=== PATIENT | female | born 1970 | race Two or more races ===

== ENCOUNTER 2022-01-15 05:11 | Emergency (ER) | payer SELFPAY ==
[~2022-01-15] VITALS: Ht 149.9 cm; Wt 71.0 kg
--- NOTE | 2022-01-15 05:18 | PHYS DOC ---
General Adult EDM: Chief Complaint: CHEST PAIN HPI: HPI: Patient is a 51 year old female who presents with 1 week history of left-sided chest pain. She reports that the pain radiates to her shoulder, down her arm, to her upper mid abdomen and left upper quadrant, and also to her posterior shoulder. It sounds like the pain is mostly constant, with intermittent exacerbations. She is unable to describe the type of pain. Asked what type of pain she is having, she repeatedly states "dolor." She reports "a little" shortness of breath. She denies cough or hemoptysis. She denies fevers or chills. She denies urinary symptoms. She reports nausea, no vomiting. She denies constipation or diarrhea. She alludes to the pain being slightly worse today. She has not taken any medications for this. She has not sought care until now. She reports that she has no medical problems but she has not seen a physician in many years. She reportedly takes no agir-xsf-[id number] or prescription medications. She denies any trauma or injury to her chest, abdomen or upper extremity. No known history of coronary disease, [place]. She has had a previous C-sections and a previous cholecystectomy. (AYAZ CALLE DO) Review of Systems: Review of Systems: Constitutional: Denies fever or chills. [] HENT: Denies nasal congestion or sore throat. [] Respiratory: Denies cough or hemoptysis. Mild dyspnea. Cardiovascular: Denies chest pain or edema. [] GI: Denies abdominal pain, nausea, vomiting, bloody stools or diarrhea. [] : Denies dysuria. [] Musculoskeletal: Denies back pain or joint pain. [] Integument: Denies rash. [] Neurologic: Denies headache, focal weakness or sensory changes. [] Endocrine: Denies polyuria or polydipsia. [] Lymphatic: Denies swollen glands. [] Psychiatric: Denies depression or anxiety. [] (AYAZ CALLE DO) Heart Score: C/O Chest Pain: Yes HEART Score for Chest Pain: HEART Score for Chest Pain Response (Comments) Value History Slighlty/Non-Suspicious 0 ECG Nonspecific Repolarizatio 1 Age >45 - < 65 1 Risk Factors 1 or 2 Risk Factors 1 Total 3 Risk Factors: Risk Factors: DM, Current or recent (<one month) smoker, HTN, HLP, family history of CAD, obesity. Risk Scores: Score 0 - 3: 2.5% MACE over next 6 weeks - Discharge Home Score 4 - 6: 20.3% MACE over next 6 weeks - Admit for Clinical Observation Score 7 - 10: 72.7% MACE over next 6 weeks - Early Invasive Strategies (JAS CALLEN M DO) Physical Exam: PE: Constitutional: Well developed, well nourished, no acute distress, non-toxic appearance. [] HENT: Normocephalic, atraumatic, bilateral external ears normal, oropharynx moist, no oral exudates, nose normal. [] Eyes: PERRLA, EOMI, conjunctiva normal, no discharge. [] Neck: Normal range of motion, no tenderness, supple, no stridor. [] Cardiovascular:Heart rate regular rhythm, no murmur, +2 radial pulses and +2 posterior tibial pulses bilaterally. Cap refill is brisk and less than 2 seconds. No peripheral edema noted. Lungs & Thorax: Bilateral breath sounds clear to auscultation, no rales, rhonchi or wheezes. Palpation of the left chest wall reproduces her pain. Abdomen: Abdomen is soft, obese, nondistended, normal bowel sounds, mild epigastric and left upper quadrant tenderness to palpation. No guarding, no rebound tenderness. No lower abdominal tenderness. No palpable pulsatile mass. No CVA tenderness. No flank abdominal ecchymoses. No fluid or bursitis noted Skin: Warm, dry, no erythema. Chronic appearing scaly rash of the bilateral upper and lower extremities. No open wounds. Acanthosis of the neck is noted. Back: No tenderness, no CVA tenderness. [] Extremities: No tenderness, no cyanosis, no clubbing, ROM intact, no edema. [] Neurologic: Alert and oriented X 3, normal motor function, normal sensory function, no focal deficits noted. [] Psychologic: Affect is somewhat bizarre, flat. She is cooperative. (JAS CALLEN M DO) EKG: EKG: EKG is interpreted at 0520 Rhythm is sinus Rate is 83 bpm [place] is left No STEMI No acute ischemia (ALVAJAS WEBBN M DO) Radiology/Procedures: Radiology/Procedures: [] (ALVAAYAZ M DO) Impression: PATIENT: YAO ESCALERA ACCOUNT: [id number] : 1970 LOCATION: ER AGE: 51 SEX: F EXAM STATUS: REG ER ORD. PHYSICIAN: AYAZ CALLE DO REASON: chest pain, abdominal pain PROCEDURE: CT CHEST ABD PELVIS W/CONTRAST EXAMINATION: CT CHEST+ABD+PELVIS W (CT CHEST WITH IV CONTRAST and CT ABDOMEN AND PELVIS WITH IV CONTRAST) CLINICAL HISTORY: Chest and abdominal pain. TECHNIQUE: CT of the chest performed with IV contrast, scanning from the thoracic inlet to the upper abdomen. CT of the abdomen and pelvis performed with IV contrast, scanning from just above the dome of the diaphragm to the symphysis pubis. CT Dose Reduction Employed: One or more of the following individualized dose reduction techniques were utilized for this examination: 1. Automated exposure control 2. Adjustment of the mA and/or kV according to patient size 3. Use of iterative reconstruction technique. COMPARISON: Chest radiograph same day FINDINGS: CHEST: No consolidation. Mild dependent subsegmental atelectasis in the lower lobes. Small perifissural nodule anterior minor fissure. No pleural effusion. Central airways are patent. Visualized thyroid gland within normal limits. No mediastinal, hilar, or axillary lymphadenopathy. Thoracic aorta and main pulmonary artery normal in caliber. No evidence of coronary atherosclerotic calcification, however, it is of note that the exam is not optimized for assessment of the coronary arteries. Normal heart size. No pericardial effusion. Mild degenerative changes in the thoracic spine. ABDOMEN/PELVIS: Cholecystectomy. Liver, pancreas, spleen, adrenal glands, and kidneys unremarkable. Moderately filled urinary bladder. Uterus and ovaries unremarkable on limited evaluation. Fluid-filled first and second segments of the duodenum with wall thickening and mild surrounding mesenteric stranding, suggestive of mild duodenitis. No dilated bowel. Mild sigmoid diverticulosis. Appendix within normal limits. No abdominal aortic or iliac artery aneurysm. No evidence of acute osseous abnormality. IMPRESSION: CHEST: No evidence of acute cardiopulmonary abnormality. ABDOMEN/PELVIS: Findings compatible with mild duodenitis. Electronically signed by: Cheng Barr DO (01/15/2022 7:16 AM) [facility] DICTATED and SIGNED BY: CHENG BARR DO DATE: 01/15/22 [id number] 0 (JOCELYNE COPE MD) Course & Med Decision Making: Course & Med Decision Making Pertinent Labs and Imaging studies reviewed. (See chart for details) IV fluids ordered, IV Zofran and IV morphine ordered. She is kept n.p.o. Chest x-ray is unremarkable. EKG is unremarkable. I have discussed the findings, differential diagnosis and plan of care thus far with her. I am recommending CT of the chest, abdomen and pelvis. I am transferring care to Dr. Cope at 0600 to follow-up on these results. Troponin is negative. No ischemia on EKG. Chest pain is been ongoing for 6 days. I suspect if CT imaging is unremarkable, disposition may likely be discharged home, though this is pending at this time. The patient is stable at time of transfer of care. (AYAZ CALLE DO) Course & Med Decision Making This is a 51-year-old female with abdominal pain. On work-up CT of the chest abdomen pelvis demonstrates findings that are consistent with duodenitis or likely an early ulcer. We will start her on Zantac and Carafate and have her follow-up with her primary care physician, return to the emergency department if symptoms become worse or other concerns arise, she is stable for discharge at this time. (JOCELYNE COPE MD) Dragon Disclaimer: Dragon Disclaimer: This electronic medical record was generated, in whole or in part, using a voice recognition dictation system. (AYAZ CALLE DO) Departure Departure Impression: Primary Impression: Chest pain Additional Impressions: Abdominal pain Duodenitis Disposition: HOME / SELF CARE / HOMELESS Condition: STABLE Scripts Sucralfate (CARAFATE) 1 Gm Tablet 1 TAB PO QID for 30 Days, #120 TAB 0 Refills Prov: JOCELYNE COPE MD 01/15/22 Famotidine (PEPCID) 20 Mg Tablet 20 MG PO BID for 30 Days, #60 TAB Prov: JOCELYNE COPE MD 01/15/22 AYAZ CALLE DO Jan 15, 2022 05:18 JOCELYNE COPE MD Jan 15, 2022 07:32
[2022-01-15 05:52] LABS: CALCIUM 8.4 mg/dL (8.5-10.1); CREATININE 0.7 mg/dL (0.6-1.0); GFR 87.9; POTASSIUM 3.7 mmol/L (3.5-5.1)
[2022-01-15 05:58] LABS: ALBUMIN 3.9 g/dL (3.4-5.0); MAGNESIUM 2.1 mg/dL (1.8-2.4); TOTAL BILIRUBIN 0.5 mg/dL (0.2-1.0); TOTAL PROTEIN 7.9 g/dL (6.4-8.2)
[2022-01-15] MEDS ORDERED: IV NORMAL SALINE 1000ML BAG 1,000 ML IV ONE (06:00)
[2022-01-15] MEDS ORDERED: ONDANSETRON PF 4 MG/2 ML VIAL. IVP ONE (06:00)
[2022-01-15] MEDS ORDERED: MORPHINE SULFATE 4 MG/ML INJ. IVP ONE (06:00)
[2022-01-15 06:08] LABS: BASO # 0.1 x10^3/uL (0.0-0.2); BASO % 1 % (0-3); EOS # 0.5 x10^3/uL (0.0-0.7); EOS % 5 % (0-3); HEMATOCRIT 45.8 % (36.0-47.0); HEMOGLOBIN 15.3 g/dL (12.0-15.5); LYMPH # 3.2 x10^3/uL (1.0-4.8); LYMPH % 35 % (24-48); MEAN CORPUSCULAR HEMOGLOBIN 29 pg (25-35); MEAN CORPUSCULAR HGB CONC 33 g/dL (31-37); MEAN CORPUSCULAR VOLUME 86 fL (79-100); MONO # 0.4 x10^3/uL (0.0-1.1); MONO % 5 % (0-9); NEUT # 5.1 x10^3/uL (1.8-7.7); NEUT % 55 % (31-73); PLATELET COUNT 281 x10^3/uL (140-400); RED BLOOD COUNT 5.35 x10^6/uL (3.50-5.40); RED CELL DISTRIBUTION WIDTH 13.3 % (11.5-14.5); WHITE BLOOD COUNT 9.2 x10^3/uL (4.0-11.0)
--- NOTE | 2022-01-15 06:27 | RAD ---
EXAM: XR CHEST 1V 01/15/2022 5:51 AM CLINICAL INDICATION: Chest pain, abdominal pain COMPARISON: None TECHNIQUE: AP upright view of the chest FINDINGS: The heart and mediastinum are normal. Lungs are well-expanded and clear. No consolidatio n, pleural effusion, or pneumothorax. Pulmonary vascularity is normal. There is a 7 mm calcification or sclerotic lesion projecting over the left humeral neck and calcific tendinitis in the right rotat or cuff. IMPRESSION: 1. No acute cardiopulmonary abnormality. 2. Possible small sclerotic bone lesion in the left humeral neck versus a superimposed calcification. . Electronically signed by: Reena Carpio MD (01/15/2022 6:25 AM) [facility]
[2022-01-15] MEDS ORDERED: CONTRAST GIVEN. MC PRN (06:45)
[2022-01-15] MEDS ORDERED: IOHEXOL 300 MG/ML 100ML VIAL. IV ONE (07:00)
--- NOTE | 2022-01-15 07:18 | RAD ---
EXAMINATION: CT CHEST+ABD+PELVIS W (CT CHEST WITH IV CONTRAST and CT ABDOMEN AND PELVIS WITH IV CONTR AST) CLINICAL HISTORY: Chest and abdominal pain. TECHNIQUE: CT of the chest performed with IV contrast, scanning from the thoracic inlet to the upper abdomen. CT of the abdomen and pelvis performed with IV contrast, scanning from just above the dome o f the diaphragm to the symphysis pubis. CT Dose Reduction Employed: One or more of the following individualized dose reduction techniques wer e utilized for this examination: 1. Automated exposure control 2. Adjustment of the mA and/or kV ac cording to patient size 3. Use of iterative reconstruction technique. COMPARISON: Chest radiograph same day FINDINGS: CHEST: No consolidation. Mild dependent subsegmental atelectasis in the lower lobes. Small perifissural nodu le anterior minor fissure. No pleural effusion. Central airways are patent. Visualized thyroid gland within normal limits. No mediastinal, hilar, or axillary lymphadenopathy. Th oracic aorta and main pulmonary artery normal in caliber. No evidence of coronary atherosclerotic hilario cification, however, it is of note that the exam is not optimized for assessment of the coronary randi cheikh. Normal heart size. No pericardial effusion. Mild degenerative changes in the thoracic spine. ABDOMEN/PELVIS: Cholecystectomy. Liver, pancreas, spleen, adrenal glands, and kidneys unremarkable. Moderately filled urinary bladder. Uterus and ovaries unremarkable on limited evaluation. Fluid-filled first and second segments of the duodenum with wall thickening and mild surrounding mese nteric stranding, suggestive of mild duodenitis. No dilated bowel. Mild sigmoid diverticulosis. Appen selene within normal limits. No abdominal aortic or iliac artery aneurysm. No evidence of acute osseous abnormality. IMPRESSION: CHEST: No evidence of acute cardiopulmonary abnormality. ABDOMEN/PELVIS: Findings compatible with mild duodenitis. Electronically signed by: Cheng Vasquez DO (01/15/2022 7:16 AM) [facility]
[2022-01-15 07:29] LABS: BACTERIA,URINE 0 /HPF (0-FEW); BILIRUBIN,URINE NEGATIVE (NEG); CLARITY,URINE CLEAR; COLOR,URINE STRAW; NITRITE,URINE NEGATIVE (NEG); PROTEIN,URINE NEGATIVE (NEG-TRACE); RBC,URINE 0 /HPF (0-2); UROBILINOGEN,URINE 0.2 mg/dL (0.2 mg/dL); WBC,URINE 0 /HPF (0-4)
[2022-01-15] MEDS ORDERED: FAMO-63 PO (07:32)
[2022-01-15] MEDS ORDERED: SUCR1TAB35 PO (07:32)
[2022-01-15 07:42] VITALS: BP 116/65
--- NOTE | 2022-01-15 18:57 | EKG ---
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
== END 2022-01-15 07:42 | disposition home or self-care (01) ==
LOC: ER 05:11
DX: R07.89 Other chest pain (principal); K29.80 Duodenitis without bleeding; M25.512 Pain in left shoulder; M47.814 Spondylosis without myelopathy or radiculopathy, thoracic region; Z90.49 Acquired absence of other specified parts of digestive tract
CPT/HCPCS: 36415; 71045; 71260; 74177; 80053; 81001; 82550; 83690; 83735; 83880; 84484; 85025; 93005; 96361; 96374; 96375; 99285; J2270; J2405; J7030; Q9967